=== PATIENT | male | born 1945 | race Caucasian/White ===

== ENCOUNTER → 2017-01-24 | Outpatient (CLI) | payer MEDICARE, MEDICAID ==
[~2017-01-24] MED LIST: ALBUTEROL2.5 MG/NEB IH; ALBUTEROL2.5 MG/NEB INH; AMARYL1 MG PO; AMERINET CHOICE1 GM IM; AMLO5TAB PO; ASPIRIN ADULT L81 M2 PO; ATIVAN GENERIC0.5 MG PO; ATIVAN0.5 MG PO; ATROVENT H0.017 MG/A IH; AUGMENTIN1 TA1 PO; AVODART0.5 MG PO; AVPAK AZITHROM250 MG PO; AVPAK EXTENDED100 MG PO; AZITHROMYCIN250 MG PO; BACTRIM DS 8001 TA1 PO; BENADRYL 25MG C25 MG PO; BREO ELLIPTA1 POW IH; BUSPAR 5MG TAB5 MG PO; BUSPIRONE 5MG TA5 MG PO; CLINDAMYCIN HC300 MG PO; CLONAZEPAM0.5 M1 PO; CLOPIDOGREL75 M2 PO; COGENTIN GENERIC1 MG PO; Ceftriaxone 1 Gm1 GM IV; DILANTIN 100MG100 MG PO; DILANTIN100 MG PO; DIPHENHYDRAMINE25 M1 PO; DUONEB 3 MG/3 ML3 ML IH; EFFEXOR XR150 MG PO; ELIGARD45 MG SC; ENULOSE10 GM/15 M PO; EXTENDED PHENY100 MG PO; FENOFIBRATE160 MG PO; FIORICET1 CAP PO; FIORINAL CAPSU1 EACH PO; FLOMAX0.4 MG PO; FUROSEMIDE 20MG20 MG FT; FUROSEMIDE 40MG40 M1 PO; GABAPENTIN 600600 MG PO; GABAPENTIN600 MG PO; GAVISCON 95 MG360 ML PO; GLIMEPIRIDE 2MG2 MG PO; HABITROL21 MG/24 H TD; HYDROCHLOROTHIA25 M1 PO; HYDROCODONE 7.51 TAB PO; HYDROCODONE-APA1 TA1 PO; HYDROCODONE-APA1 TA2 PO; HYDROXYZINE 25M25 MG PO; IBUPROFEN 600M600 MG PO; IBUPROFEN600 MG PO; IMDUR120 MG PO; IMODIUM 2MG. CAP2 MG PO; Isosorbide Mono60 MG PO; JANUVIA100 MG PO; LACTULOSE10 GM/15 M PO; LACTULOSE20 GM/30 M PO; LASIX20 MG PO; LEVAQUIN 750 M750 MG PO; LEVAQUIN500 MG PO; LEVOTHYROXIN0.025 M1 PO; LEVOTHYROXINE0.05 MG PO; LIPITOR40 MG PO; LISINOPRIL 20MG20 MG PO; LISINOPRIL 5MG T5 MG PO; LORAZEPAM0.5 MG/TAB PO; LORAZEPAM1 MG/TABLE PO; MAG-OX 400MG T400 MG PO; METFORMIN1000 MG PO; METFORMIN500 MG PO; METOPROLOL 25 M25 MG PO; METOPROLOL SUCC25 M1 PO; METOPROLOL25 MG PO; MULTI VITAMINS1 TA1 PO; MULTIVITAMIN1 TAB PO; NEBULIZER XX; OMEPRAZOLE20 MG PO; OMNICEF 300 MG300 MG PO; PHENYTOIN 100M100 MG PO; PHENYTOIN100 MG PO; POTASSIUM CHLO20 ME2 PO; PREDNISONE 10MG10 MG PO; PREDNISONE 20MG20 MG PO; PRINIVIL5 MG PO; PROAIR HFA0.09 MG/AC IH; Q-TUSSIN100 MG/5 M PO; RESTORIL 15MG C15 MG PO; RISPERDAL 1 MG T1 MG PO; ROBAFEN100 MG/5 M PO; SIMVASTATIN40 MG PO; TAMSULOSIN HYD0.4 MG PO; TEMAZEPAM15 MG PO; TIZANIDINE4 MG PO; TRAMADOL 50MG T50 M1 PO; TRAZODONE 50MG50 MG PO; TRAZODONE150 MG PO; TRAZODONE50 MG PO; TYLENOL ES500 MG PO; TYLENOL WITH CO1 TA1 PO; VANCOMYCIN 101000 MG IV; VENLAFAXINE HCL75 M1 PO; VENTOLIN H0.09 MG/AC IH; VITAMIN D31000 IU PO; XARELTO20 MG PO; ZITHROMAX Z-PA250 M2 PO; ZOCOR40 MG PO
[2017-01-24 17:04] LABS: STOOL OCCULT BLOOD POSITIVE (NEG)
== END ==
LOC: LAB 16:45
DX: Z87.11 Personal history of peptic ulcer disease (principal); K59.00 Constipation, unspecified

== ENCOUNTER → 2017-01-26 | Outpatient (CLI) | payer MEDICARE, MEDICAID ==
[2017-01-27 08:00] LABS: STOOL OCCULT BLOOD POSITIVE (NEG)
== END ==
LOC: LAB 07:50
DX: K59.00 Constipation, unspecified (principal)

== ENCOUNTER → 2017-01-27 | Outpatient (CLI) | payer MEDICARE, MEDICAID ==
[2017-01-27 09:27] LABS: STOOL OCCULT BLOOD POSITIVE (NEG)
== END ==
LOC: LAB 09:06
DX: K59.00 Constipation, unspecified (principal)

== ENCOUNTER → 2017-03-14 | Outpatient (CLI) | payer MEDICARE, MEDICAID ==
[~2017-03-14] MED LIST changes: +ACETAMINOPHEN500 M3 PO; +ACID GONE 420420 ML PO; +ALDACTONE 25MG25 MG PO; +ASPIRIN 81MG TA81 MG PO; +DAILY MULTIPLE1 T11 PO; +FUROSEMIDE 20MG20 MG PO; +INVANZ1 GM IM; +ISOSORBIDE MON120 MG PO; +LUPRON DEPOT45 MG IM; +OXYBUTYNIN CHLOR5 M1 PO; +RESTORIL7.5 MG PO; +TYLENOL W/CODEI1 TA2 PO; +VITAMIN D1000 IU PO
[2017-03-14 18:32] LABS: URINE BILIRUBIN - DIPSTICK NEGATIVE (NEG); URINE BLOOD 2+ (NEG)
[2017-03-14 19:17] LABS: BUN 23 mg/dL (7-18)
[2017-03-14 19:19] LABS: GFR (ESTIMATED) 66 ML/MIN (>60)
== END ==
LOC: LAB 18:19
PROVIDERS: Emergency Medicine
DX: N39.0 Urinary tract infection, site not specified (principal); Z51.81 Encounter for therapeutic drug level monitoring; R41.82 Altered mental status, unspecified

== ENCOUNTER → 2017-03-15 | Outpatient (CLI) | payer MEDICARE, MEDICAID ==
[2017-03-15 01:41] LABS: HEMOGLOBIN 9.7 g/dL (14.1-18.0); LYMPH # 1.5 K/mm3 (0.7-4.5)
[2017-03-15 03:28] LABS: NEUTROPHILS 84 % (42-76)
== END ==
LOC: LAB 01:19
PROVIDERS: Emergency Medicine
DX: N39.0 Urinary tract infection, site not specified (principal); Z51.81 Encounter for therapeutic drug level monitoring; R41.82 Altered mental status, unspecified